=== PATIENT | male | born 1970 | race Two or more races ===

== ENCOUNTER 2021-11-27 01:18 | Emergency (ER) | payer OTHER ==
[~2021-11-27] VITALS: Ht 172.7 cm; Wt 138.3 kg
[2021-11-27] MEDS ORDERED: DUI500 PO (03:01)
== END 2021-11-27 04:23 | disposition home or self-care (01) ==
LOC: ER 01:18
DX: J06.9 Acute upper respiratory infection, unspecified (principal); Z20.822 Contact with and (suspected) exposure to COVID-19